=== PATIENT | female | born 1985 | race Caucasian/White ===

== ENCOUNTER 2019-05-09 00:17 | Emergency (ER) | payer OTHER ==
[~2019-05-09] VITALS: Ht 154.9 cm; Wt 53.5 kg
--- NOTE | 2019-05-09 01:20 | NUR ---
Dr. Stauffer at bedside for MSE
[2019-05-09] MEDS ORDERED: HYDROCODONE/APAP 10-325 MG TABLET PO ONE (01:45)
[2019-05-09] MEDS ORDERED: PSEUDOEPHEDRINE HCL 30 MG TABLET PO ONE (01:45)
[2019-05-09] MEDS ORDERED: CEphaleXIN 500 MG CAPSULE PO ONE (01:45)
[2019-05-09] MEDS ORDERED: ONDANSETRON ODT 4 MG TAB.RAPDIS SL ONE (01:45)
[2019-05-09] MEDS ORDERED: PSEUDOEPHEDRINE HCL 30 MG TABLET ONE (01:53)
[2019-05-09] MEDS ORDERED: CEphaleXIN 500 MG CAPSULE ONE (01:53)
[2019-05-09] MEDS ORDERED: ONDANSETRON ODT 4 MG TAB.RAPDIS ONE (01:53)
--- NOTE | 2019-05-09 01:59 | NUR ---
Patient discharged to home in stable conditon. Written and verbal after care instructions given. Patient verbalizes understanding of instructions. Patient ambulating with steady gait
[2019-05-09 02:19] VITALS: BP 135/63
== END 2019-05-09 01:59 | disposition home or self-care (01) ==
LOC: ER 00:28
DX: H66.92 Otitis media, unspecified, left ear (principal); R05 Cough
CPT/HCPCS: A4663; Q0162